=== PATIENT | female | born 1985 | race African-American/Black ===

== ENCOUNTER → 2024-11-13 | Outpatient (CLI) | payer OTHER ==
[~2024-11-13] MED LIST: OSEL75CA PO; PRED20TA PO
[2024-11-13 17:13] LABS: CALCIUM LEVEL 11.1 MG/DL (8.5-10.1)
[2024-11-13 17:16] LABS: PTH INTACT 314.1 PG/ML (18.5-88.0)
== END ==
LOC: M LAB 15:39
PROVIDERS: ATTEND Otolaryngology
DX: E83.52 Hypercalcemia (principal)

== ENCOUNTER → 2025-02-06 | Outpatient (CLI) | payer OTHER ==
[~2025-02-06] MED LIST changes: +ALBU8.5H INH; +AMIT10TA11 PO; +FURO20TA2 PO; +MELO7.5T35 PO; +ROZE8TAB16 PO; +VITA100093 PO; +[UNRECOGNIZED DRUG - CODE] PO
== END ==
LOC: M WHC 10:59
PROVIDERS: ATTEND Internal Medicine
DX: M85.852 Other specified disorders of bone density and structure, left thigh (principal); E83.52 Hypercalcemia